=== PATIENT | male | born 1990 | race African-American/Black ===

== ENCOUNTER 2017-03-09 19:52 | Emergency (ER) | payer MEDICAID ==
[2017-03-11 11:05] VITALS: BMI 25.8
== END 2017-03-09 21:29 | disposition home or self-care (01) ==
LOC: D.ER 19:52
DX: K02.9 Dental caries, unspecified (principal); K08.89 Other specified disorders of teeth and supporting structures

== ENCOUNTER 2017-03-10 10:09 | Inpatient (IN) | payer MEDICAID ==
[~2017-03-10] VITALS: Ht 167.6 cm; Wt 70.6 kg
[2017-03-10 13:43] LABS: ALBUMIN 4.3 g/dL (3.4-5.0); ALKALINE PHOSPHATASE 57 U/L (46-116); ALT (SGPT) 21 U/L (10-68); BILIRUBIN - TOTAL 0.62 mg/dL (0.2-1.3); CALC OSMOLALITY 268 mosm/kg (275-300); CALCIUM 8.9 mg/dL (8.5-10.1); CARBON DIOXIDE 27.6 mmol/L (21.0-32.0); CHLORIDE - SERUM 99 mmol/L (98-107); GLUCOSE 88 mg/dL (74-106); POTASSIUM - SERUM 3.8 mmol/L (3.5-5.1); PROTEIN - SERUM 8.8 g/dL (6.4-8.2); SODIUM 136 mmol/L (136-145); UREA NITROGEN 7 mg/dL (7-18); eGFR NON AFRICAN AMERICAN > 90 mL/min (90-120)
[2017-03-10 14:02] LABS: BASOPHILS 0.1 % (0-2); EOSINOPHILS 1.1 % (0-7); HEMATOCRIT 40.5 % (42.0-54.0); HEMOGLOBIN 13.7 g/dL (13.5-17.5); IMMATURE GRANULOCYTES 0.2 % (0-5); LYMPHOCYTES 13.9 % (15-50); MCH 32.4 pg (26.0-34.0); MCHC 33.8 g/dL (31.0-37.0); MCV 95.7 fL (80.0-100.0); MEAN PLATELET VOLUME 9.8 fL (7.4-10.4); MONOCYTES 14.8 % (2-11); NEUTROPHILS 69.9 % (40-80); PLATELET COUNT 305 10x3/uL (130-400); RBC 4.23 10x6/uL (4.20-6.10); RDW 11.6 % (11.5-14.5); WBC 10.5 10x3/uL (4.8-10.8)
[2017-03-10 17:25] LABS: HEMOGLOBIN A1C 5.1 % (4.8-6.0)
--- NOTE | 2017-03-10 22:14 | NUR ---
PT TO ROOM 1223 VIA WHEELCHAIR FROM ER.PT WITHOUT DISTRESS.SWELLING NOTED TO RIGHT SIDE OF FACE.PT WITHOUT DISTRESS.ASSESSMENT PER RFLOW SHEET.CALL LIGHT IN REACH.MONITOR FOR NEEDS.
[2017-03-10 23:00] VITALS: BP 111/71; BMI 25.8
--- NOTE | 2017-03-11 05:08 | NUR ---
ROAD FREIGHT CONDUCTOR HERE TO DRAW AM LAB.
[2017-03-11 05:25] LABS: BASOPHILS 0.3 % (0-2); EOSINOPHILS 3.1 % (0-7); HEMATOCRIT 38.8 % (42.0-54.0); IMMATURE GRANULOCYTES 0.3 % (0-5); LYMPHOCYTES 21.6 % (15-50); MCH 32.1 pg (26.0-34.0); MCHC 33.5 g/dL (31.0-37.0); MCV 95.8 fL (80.0-100.0); MEAN PLATELET VOLUME 9.4 fL (7.4-10.4); MONOCYTES 16.9 % (2-11); NEUTROPHILS 57.8 % (40-80); PLATELET COUNT 310 10x3/uL (130-400); RBC 4.05 10x6/uL (4.20-6.10); RDW 11.4 % (11.5-14.5)
[2017-03-11 05:39] LABS: WBC 6.8 10x3/uL (4.8-10.8)
[2017-03-11 05:50] LABS: ALBUMIN 3.5 g/dL (3.4-5.0); ALKALINE PHOSPHATASE 48 U/L (46-116); ALT (SGPT) 17 U/L (10-68); BILIRUBIN - TOTAL 0.85 mg/dL (0.2-1.3); CALC OSMOLALITY 268 mosm/kg (275-300); CALCIUM 8.6 mg/dL (8.5-10.1); CARBON DIOXIDE 26.8 mmol/L (21.0-32.0); CHLORIDE - SERUM 100 mmol/L (98-107); CREATININE - SERUM 1.1 mg/dL (0.6-1.3); GLUCOSE 88 mg/dL (74-106); POTASSIUM - SERUM 3.7 mmol/L (3.5-5.1); PROTEIN - SERUM 7.8 g/dL (6.4-8.2); SODIUM 136 mmol/L (136-145); UREA NITROGEN 8 mg/dL (7-18); eGFR NON AFRICAN AMERICAN 86 mL/min (90-120)
--- NOTE | 2017-03-11 07:30 | NUR ---
AWAKE AND ALERT. ORIENTED X3. NO C/O AT THIS TIME. LUNGS ARE CLEAR BILATERALLY, NO COUGH NOTED. SKIN IS INTACT IWTHOUT REDNESS EXCEPT SOME SWELLWING NOTED TO RIGHT SIDE OF FACE AROUND THE EYE. PATIENT REPORTS THIS IMPROVED FROM YESTERDAY DOES FAMILY AT BEDSIDE. IV TO LEFT AC IS PATENT WITHOUT REDNESS AT INSERTION SITE. DENIES NEEDS.
--- NOTE | 2017-03-11 08:15 | NUR ---
REFUSED BREAKFAST TRAY. ACCEPTED OFFER OF ALTERNATIVE TRAY AND ATE ALL OF MEAL.
[2017-03-11 08:26] VITALS: BP 121/74
--- NOTE | 2017-03-11 09:40 | NUR ---
REQUESTED AND GIVEN 4MG MORPHINE SLOW IVP FOR C/O RIGHT SIDED FACE PAIN LEVEL 10. WILL MONITOR.
[2017-03-11 11:05] VITALS: Ht 167.6 cm; Wt 70.6 kg
--- NOTE | 2017-03-11 11:20 | NUR ---
RESTING QUIETLY AT THIS TIME. DENIES NEEDS.
--- NOTE | 2017-03-11 12:15 | NUR ---
LUNCH SERVED IN ROOM. DIFFICULT FOR PATIENT R/T INCREASED PAIN WITH CHEWING. WILL MONITOR.
--- NOTE | 2017-03-11 14:05 | NUR ---
REQUESTED AND GIVEN 4 MG MORPHINE SLOW IVP FOR C/O RIGHT SIDED FACE PAIN LEVEL 8. WILL MONITOR.
[2017-03-11 16:40] VITALS: BP 121/69
--- NOTE | 2017-03-11 18:41 | NUR ---
ATE ONLY A FEW BITES OF SUPPER R/T PAIN WITH CHEWING. REQUESTED AND GIVEN 4MG MORPHINE SLOW IVP FOR PAIN LEVEL 8. WILL MONITOR. NO CHANGES NOTED.
--- NOTE | 2017-03-11 19:30 | NUR ---
PM ROUNDS MADE, INFORMED PT THAT I WILL RETURN SHORTLY TO DO ASSESSMENT, PT VERBALIZES UNDERSTANDING, VISITING WITH FAMILY AND FRIENDS, DENIES NEEDS AT THIS TIME
--- NOTE | 2017-03-11 19:50 | NUR ---
PT AMB IN RIZZO, GAIT STEADY, WITH FAMILY AT SIDE
[2017-03-11 20:37] VITALS: BP 117/71
--- NOTE | 2017-03-11 20:37 | NUR ---
VS OBTAINED PER MARJAN MARTINEZ RN
--- NOTE | 2017-03-11 21:00 | NUR ---
ASSESSMENT PER FLOW SHEET, IV IN LEFT UPPER ARM INTACT WITH NO REDNESS OR EDEMA, VANCOMYCIN HUNG IVPB PER MD ORDERS, SEE EMAR, PT REQUESTS PAIN MED WHEN DUE, INFORMED PT THAT I WILL ADM IT WHEN DUE, PT VERBALIZES UNDERSTANDING, PT REPORTS FLATUS, BM TODAY AND VOIDING WITH NO DIFFICULTY, PT DENIES NEEDS AT THIS TIME
--- NOTE | 2017-03-11 22:39 | NUR ---
MARJAN MARTINEZ RN ADM MORPHINE FOR PAIN PER MD ORDERS, SEE EMAR, PT DENIES NEEDS AT THIS TIME
--- NOTE | 2017-03-11 23:42 | NUR ---
PT AWAKE, ZOSYN HUNG IVPB PER MD ORDERS, SEE EMAR, PT DENIES NEEDS AT THIS TIME, INFORMED PT THAT MARJAN MARTINEZ RN WILL BE IN TO OBTAIN VS
[2017-03-12] VITALS (8 sets, daily range): BP systolic 108–129; BP diastolic 53–89
--- NOTE | 2017-03-12 00:31 | NUR ---
PT RESTING WITH EYES CLOSED, AROUSES TO SOFT VERBAL STIMULATION, VS OBTAINED PER MARJAN MARTINEZ RN, PT DENIES NEEDS AT THIS TIME
--- NOTE | 2017-03-12 02:20 | NUR ---
PT RESTING WITH EYES CLOSED, RESP QUIET, NO DISTRESS NOTED, LEFT UNDISTURBED AT THIS TIME
--- NOTE | 2017-03-12 03:17 | NUR ---
NEW BAG OF NS HUNG IV PER MD ORDERS, SEE EMAR, PER MARJAN MARTINEZ, RN
--- NOTE | 2017-03-12 05:31 | NUR ---
PT RESTING WITH EYES CLOSED, AROUSES TO SOFT VERBAL STIMULATION, IRMA FRANCOIS IVPB PER MD ORDERS, SEE EMAR, I&O'S COLLECTED, PT DENIES NEEDS AT THIS TIME
[2017-03-12 06:07] LABS: BASOPHILS 0.8 % (0-2); EOSINOPHILS 5.6 % (0-7); HEMATOCRIT 39.2 % (42.0-54.0); HEMOGLOBIN 13.2 g/dL (13.5-17.5); IMMATURE GRANULOCYTES 0.2 % (0-5); LYMPHOCYTES 33.6 % (15-50); MCH 32.3 pg (26.0-34.0); MCHC 33.7 g/dL (31.0-37.0); MCV 95.8 fL (80.0-100.0); MEAN PLATELET VOLUME 9.8 fL (7.4-10.4); MONOCYTES 14.6 % (2-11); NEUTROPHILS 45.2 % (40-80); PLATELET COUNT 328 10x3/uL (130-400); RBC 4.09 10x6/uL (4.20-6.10); RDW 11.5 % (11.5-14.5)
[2017-03-12 06:10] LABS: WBC 4.8 10x3/uL (4.8-10.8)
[2017-03-12 06:32] LABS: ALBUMIN 3.2 g/dL (3.4-5.0); ALKALINE PHOSPHATASE 45 U/L (46-116); CALC OSMOLALITY 277 mosm/kg (275-300); CALCIUM 8.5 mg/dL (8.5-10.1); CARBON DIOXIDE 27.8 mmol/L (21.0-32.0); CHLORIDE - SERUM 104 mmol/L (98-107); CREATININE - SERUM 1.1 mg/dL (0.6-1.3); GLUCOSE 81 mg/dL (74-106); POTASSIUM - SERUM 3.7 mmol/L (3.5-5.1); PROTEIN - SERUM 7.3 g/dL (6.4-8.2); SODIUM 141 mmol/L (136-145); UREA NITROGEN 7 mg/dL (7-18); eGFR NON AFRICAN AMERICAN 86 mL/min (90-120)
[2017-03-12 06:38] LABS: ALT (SGPT) 22 U/L (10-68)
--- NOTE | 2017-03-12 07:00 | NUR ---
SHIFT REPORT TO SHRUTHI PENN RN
--- NOTE | 2017-03-12 07:45 | NUR ---
PT IS RECEIVED THIS AM LYING IN BED. HE IS AWAKE AND ALERT. HE STATES THAT THE SIDE OF HIS FACE IS STILL HURTING. HIS EYE IS NOT BAD IT HAS BEEN. VSS. GEN- AWAKE AND ALERT. THE SWELLING OF HIS R EYE HAS GONE DOWN. 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 NO REDNESS NOTED. LUNGS- CLEAR. HEART- RRR. ABD- SOFT NONTENDER. BS +. EXT- NO EDEMA NOTED. BED IS LOW, SIDE RAILS UP X 2 AND CALL LIGHT IN REACH.
--- NOTE | 2017-03-12 09:30 | NUR ---
PT STATES THAT HIS JAW PAIN IS SOME BETTER. PAIN IS A 7 HE STATES. PT WAS ASLEEP WHEN I WALKED IN ROOM.
--- NOTE | 2017-03-12 10:26 | NUR ---
pt is sleeping in bed. vancomycin initaited to infuse.
--- NOTE | 2017-03-12 11:55 | NUR ---
SITTING UP IN BED WATCHING TV. V/S DONE. PT REQUESTING PAIN MED. CINDA BHAT INFORMED OF PT'S REQUEST.
--- NOTE | 2017-03-12 15:15 | NUR ---
PT IS UP WALKING IN HALLWAY. HE REQUEST SOME SIL CRACKERS AND MILK. TOOK TO HIM.
--- NOTE | 2017-03-12 19:55 | NUR ---
ASSESSMENT PER FLOW SHEET, VS OBTAINED, IV IN LEFT UPPER ARM INTACT WITH NO REDNESS OR EDEMA INFUSING VIA PUMP NS AT 100 ML/HR, VANCOMYCIN NOTED NOT TO BE INFUSING, ROLLER CLAMP UNCLAMPED, PUMP PROGRAMMED FOR SECONDARY INFUSING, VANCOMYCIN INFUSING NOW, PT RATES RIGHT SIDE OF FACE PAIN 03/29, INFORMED PT THAT I WILL ADM PAIN MED WHEN DUE, PT VERBALIZES UNDERSTANDING, PT REPORTS FLATUS, BMX3, AND VOIDING WITH NO DIFFICULTY, PT REQUESTED AND SERVED APPLE JUICE, DENIES FURTHER NEEDS, BED IN LOW POSITION, SIDE RAILS X 2, CALL LIGHT IN REACH
--- NOTE | 2017-03-12 20:20 | NUR ---
RESP IN ROOM FOR TREATMENT, PT DENIES NEEDS AT THIS TIME
--- NOTE | 2017-03-12 21:20 | NUR ---
PT AMB IN RIZZO, GAIT STEADY, PT INQUIRES ABOUT PAIN MED, KD MOODY, RN INFORMS HIM THAT IT IS DUE IN 10 MINUTES, PT STATES "THAT'S GOOD, I'M JUST GOING TO TAKE A WALK TO THE Y WINDOW, AND I WILL BE RIGHT BACK"
--- NOTE | 2017-03-12 21:30 | NUR ---
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
--- NOTE | 2017-03-12 22:20 | NUR ---
PT BACK IN BED FROM BR, LOOKING AT PHONE, RATES PAIN 12/27, DENIES NEEDS AT THIS TIME
--- NOTE | 2017-03-12 23:00 | NUR ---
NEW BAG OF NS AND ZOSYN HUNG PER MD ORDERS, SEE EMAR, VS OBTAINED, DENIES NEEDS AT THIS TIME
--- NOTE | 2017-03-12 23:10 | NUR ---
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
--- NOTE | 2017-03-12 23:25 | NUR ---
SPOKE TO TOM LOPEZ RN IN L&D ABOUT HAVING AN IV STARTED, SHE WILL SEND NADEEM JAMA RN OVER TO START A NEW IV
--- NOTE | 2017-03-12 23:30 | NUR ---
INFORMED PT THAT NADEEM JAMA RN FROM L&D WILL BE IN SHORTLY TO RESTART THE IV, PT VERBALIZES UNDERSTANDING, VS OBTAINED, DENIES NEEDS AT THIS TIME
--- NOTE | 2017-03-13 00:08 | NUR ---
20 G PIV STARTED TO RIGHT FOREARM, BLOOD RETURN NOTED, FLUSHES EASILY. TOLERATED WELL. NS INFUSION AT 100 MLS/HR RECONNECTED AND STARTED. ZOSYN IVPB SET TO INFUSE VIA PUMP. WARM COMPRESS APPLIED TO LEFT FA PIV SITE, SWELLING AND WARMTH NOTED TO SITE, PT C/O OF DISCOMFORT. DENIES ADDITIONAL NEEDS AT THIS TIME. BED IN LOW POSITION WITH UPPER SIDE RAILS RAISED X2. CL AND PHONE WITHIN PT REACH. DENIES ADDITIONAL NEEDS. REPORT GIVEN TO Aurora MARTINEZ RN ON INTERVENTIONS DONE.
--- NOTE | 2017-03-13 00:58 | NUR ---
PT DRY PLASTERER LIGHT, PT FEELING BETTER, REQUESTED AND SERVED SANDWICH TRAY, DENIES FURTHER NEEDS
--- NOTE | 2017-03-13 01:26 | NUR ---
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
--- NOTE | 2017-03-13 01:35 | NUR ---
ADM VANCOMYCIN IVPB PER MD ORDERS, SEE EMAR
--- NOTE | 2017-03-13 02:28 | NUR ---
PT RESTING WITH EYES CLOSED, RESP QUIET, NO DISTRESS NOTED, LEFT UNDISTURBED AT THIS TIME
--- NOTE | 2017-03-13 04:00 | NUR ---
PT RESTING WITH EYES CLOSED, RESP QUIET, NO DISTRESS NOTED, LEFT UNDISTURBED AT THIS TIME
[2017-03-13 05:51] VITALS: BP 113/70
--- NOTE | 2017-03-13 05:51 | NUR ---
PT AWAKE, ADM 0530 MED IVPB AND MORPHINE SIVP PER MD ORDERS, SEE EMAR, VS OBTAINED, PUMPS CLEARED, PT DENIES FURTHER NEEDS
--- NOTE | 2017-03-13 07:05 | NUR ---
SHIFT REPORT TO SHRUTHI PENN RN
[2017-03-13 07:21] LABS: HEMOGLOBIN 13.1 g/dL (13.5-17.5); LYMPHOCYTES 41.6 % (15-50); MCHC 34.5 g/dL (31.0-37.0); MCV 92.7 fL (80.0-100.0); MEAN PLATELET VOLUME 9.4 fL (7.4-10.4); NEUTROPHILS 43.2 % (40-80); PLATELET COUNT 315 10x3/uL (130-400); RDW 11.1 % (11.5-14.5); WBC 4.9 10x3/uL (4.8-10.8)
[2017-03-13 07:30] VITALS: BP 117/57
--- NOTE | 2017-03-13 07:30 | NUR ---
PT IS LYING IN BED. OFFERS NO COMPLAINTS. IV NOTED R FOREARM. GEN- AWAKE AND ALERT. LUNGS- CLEAR. HEART- RRR. ABD- SOFT NT BS+ EXT- NO EDEMA NOTED VSS. BED IS LOW, SIDE RAILS UP AND CALL LIGHT IN REACH
[2017-03-13 07:47] LABS: ALBUMIN 3.6 g/dL (3.4-5.0); ALKALINE PHOSPHATASE 47 U/L (46-116); ALT (SGPT) 21 U/L (10-68); BILIRUBIN - TOTAL 0.51 mg/dL (0.2-1.3); CALC OSMOLALITY 277 mosm/kg (275-300); CALCIUM 8.8 mg/dL (8.5-10.1); CARBON DIOXIDE 26.6 mmol/L (21.0-32.0); CHLORIDE - SERUM 104 mmol/L (98-107); CREATININE - SERUM 1.2 mg/dL (0.6-1.3); GLUCOSE 95 mg/dL (74-106); PROTEIN - SERUM 7.6 g/dL (6.4-8.2); SODIUM 141 mmol/L (136-145); eGFR NON AFRICAN AMERICAN 78 mL/min (90-120)
[2017-03-13 07:49] LABS: UREA NITROGEN 5 mg/dL (7-18)
--- NOTE | 2017-03-13 09:00 | NUR ---
PT IS LYING IN BED . STATES THAT HE NEEDS PAIN MED. GIVEN
[2017-03-13] MEDS ORDERED: CLEOCIN HCL300 MG PO (09:40)
[2017-03-13] MEDS ORDERED: FLORAJEN3 CAPS460 MG PO (09:41)
[2017-03-13] MEDS ORDERED: IBUPROFEN800 MG PO (09:43)
== END 2017-03-13 17:16 | disposition home or self-care (01) | DRG 158 ==
LOC: D.ER 10:09 → OBSVTIME 20:18 → D.WS 20:18
PROVIDERS: Physician Assistant; ADMIT Family Medicine
DX: K04.7 Periapical abscess without sinus (principal); L03.213 Periorbital cellulitis; R06.2 Wheezing; F43.10 Post-traumatic stress disorder, unspecified; F25.9 Schizoaffective disorder, unspecified

== ENCOUNTER 2017-12-09 18:38 | Emergency (ER) | payer MEDICAID ==
[2017-03-11 11:05] VITALS: BMI 25.8
[~2017-12-09 18:38] MED LIST: CLEOCIN HCL300 MG PO; FLORAJEN3 CAPS460 MG PO; IBUPROFEN800 MG PO
== END 2017-12-09 20:50 | disposition home or self-care (01) ==
LOC: D.ER 18:38
DX: K04.7 Periapical abscess without sinus (principal); K08.89 Other specified disorders of teeth and supporting structures; F17.200 Nicotine dependence, unspecified, uncomplicated

== ENCOUNTER 2018-03-04 07:57 | Emergency (ER) | payer MEDICAID ==
[~2018-03-04] VITALS: Ht 167.6 cm; Wt 72.6 kg
[2018-03-04 08:07] VITALS: Ht 167.6 cm; Wt 72.6 kg
[2018-03-04] MEDS ORDERED: CYCLOBENZAPRINE10 MG PO (10:37)
[2018-03-04] MEDS ORDERED: ACETAMINOPHEN500 M1 PO (10:37)
[2018-03-04] MEDS ORDERED: IBUPROFEN800 MG PO (10:37)
[2018-03-04 11:00] VITALS: BP 110/68
== END 2018-03-04 11:01 | disposition home or self-care (01) ==
LOC: D.ER 07:57
DX: R07.89 Other chest pain (principal); M62.838 Other muscle spasm; S29.011A Strain of muscle and tendon of front wall of thorax, initial encounter; X50.9XXA Other and unspecified overexertion or strenuous movements or postures, initial encounter; Y93.89 Activity, other specified; Y92.019 Unspecified place in single-family (private) house as the place of occurrence of the external cause; F17.200 Nicotine dependence, unspecified, uncomplicated

== ENCOUNTER 2020-11-07 14:45 | Emergency (ER) | payer BC ==
[~2020-11-07] VITALS: Ht 167.6 cm; Wt 77.3 kg
[~2020-11-07 14:45] MED LIST changes: +ACETAMINOPHEN500 M1 PO; +CYCLOBENZAPRINE10 MG PO
[2020-11-07 14:50] VITALS: BP 139/77; Ht 167.6 cm; Wt 77.3 kg
[2020-11-07 16:59] LABS: BASOPHILS 0.8 % (0-2); EOSINOPHILS 2.4 % (0-7); HEMATOCRIT 42.4 % (42.0-54.0); HEMOGLOBIN 14.6 g/dL (13.5-17.5); IMMATURE GRANULOCYTES 1.6 % (0-5); LYMPHOCYTE ABS# 2.98 10x3/uL (1.32-3.57); LYMPHOCYTES 42.1 % (15-50); MCH 32.4 pg (26.0-34.0); MCHC 34.4 g/dL (31.0-37.0); MCV 94.2 fL (80.0-100.0); MEAN PLATELET VOLUME 10.1 fL (7.4-10.4); MONOCYTES 9.6 % (2-11); NEUTROPHIL ABS# 3.08 10x3/uL (1.78-5.38); NEUTROPHILS 43.5 % (40-80); RDW 11.8 % (11.5-14.5); WBC 7.1 10x3/uL (4.8-10.8)
[2020-11-07 17:00] LABS: PLATELET COUNT 135 10x3/uL (130-400)
[2020-11-07 17:19] LABS: CALC OSMOLALITY 274 mosm/kg (275-300); CALCIUM 9.1 mg/dL (8.5-10.1); CARBON DIOXIDE 29.7 mmol/L (21.0-32.0); CHLORIDE - SERUM 102 mmol/L (98-107); GLUCOSE 90 mg/dL (74-106); POTASSIUM - SERUM 3.9 mmol/L (3.5-5.1); SODIUM 138 mmol/L (136-145); UREA NITROGEN 9 mg/dL (7-18); eGFR NON AFRICAN AMERICAN > 90 mL/min (90-120)
[2020-11-07 17:25] LABS: ALBUMIN 4.4 g/dL (3.4-5.0); ALKALINE PHOSPHATASE 64 U/L (30-120); ALT (SGPT) 47 U/L (10-68); BILIRUBIN - TOTAL 0.27 mg/dL (0.2-1.3); PROTEIN - SERUM 8.3 g/dL (6.4-8.2)
[2020-11-07] MEDS ORDERED: HYDROCODON-ACE1 EAC7 PO (18:39)
[2020-11-07] MEDS ORDERED: CLEOCIN HCL300 MG PO (18:39)
[2020-11-07] MEDS ORDERED: DICLOFENAC SODI50 MG PO (18:39)
[2020-11-07] MEDS ORDERED: CEPHALEXIN500 M1 PO (18:39)
== END 2020-11-07 19:00 | disposition home or self-care (01) ==
LOC: D.ER 14:45
PROVIDERS: Family Medicine
DX: L02.01 Cutaneous abscess of face (principal); J02.9 Acute pharyngitis, unspecified; Z72.0 Tobacco use